=== PATIENT | female | born 1980 ===

== ENCOUNTER 2018-04-28 12:25 | Day surgery (SDC) | payer MEDICAID ==
[~2018-04-28] VITALS: Ht 167.6 cm; Wt 67.1 kg
[~2018-04-28 12:25] MED LIST: FISH OIL CAP1000 MG ORAL; LUNESTA2 MG ORAL; MULTIVITAMINS1 EAC2 ORAL
[2018-04-28 12:54] VITALS: BP 118/65
[2018-04-28] MEDS ORDERED: Bupivacaine 0.25% Inj 30ml INJ ONE (13:38)
[2018-04-28] MEDS ORDERED: Bacitracin Oint 15gm Tube TOPIC ONE (13:38)
[2018-04-28] MEDS ORDERED: Lidocaine 1% 10mg/ml/EPI 0.01mg/ml 50ml INJ ONE (13:38)
--- NOTE | 2018-04-28 14:34 | Pre-Procedure Note/Attestation ---
Pre-Procedure Note/Attestation Complete Prior to Procedure Planned Procedure: left Procedure Narrative: expanding lesion of left preauric Indications for Procedure Pre-Operative Diagnosis: pre auricular lesion left side Attestation I attest that I discussed the nature of the procedure; its benefits; risks and complications; and alternatives (and the risks and benefits of such alternatives ), prior to the procedure, with the patient (or the patient's legal outbound call center representative). I attest that, if there was a reasonable possibility of needing a blood transfusion, the patient (or the patient's legal outbound call center representative) was given the [facility] standardized written summary, pursuant to the [place] Blood Safety Act ([place] Health and Safety Code # 1645, as amended). I attest that I re-evaluated the patient just prior to the surgery and that there has been no change in the patient's H&P, except as documented below: Eduin Jose MD April 28, 2018 14:34
[2018-04-28 15:14] VITALS: BP 116/72
[2018-04-28 15:30] VITALS: BP 128/74
--- NOTE | 2018-05-03 12:15 | Operative Note - Dictated ---
DATE OF OPERATION: 04/30/2018 SURGEON: Eduin Jose M.D. PREOPERATIVE DIAGNOSIS: Left preauricular cyst. POSTOPERATIVE DIAGNOSIS: Left preauricular cyst. INDICATIONS: History of infection, erythema, swelling, pain, blood with necrosis. The patient understood the risks of excision and was aware that she would be having a scar on the left side in the preauricular area. The patient signed the consent and understood the risks, complications, and alternative methods of treatment. PROCEDURE IN DETAIL: The patient was prepped and draped for surgery, which was done under local with Betadine and injected with 1% Xylocaine in 1:400,000 epinephrine with a 27-gauge needle. I then incised with a 15-blade at the preauricular incision, undermined the skin and an ellipse created at the lesion. The elliptical lesion was excised and then marked at the superior pole with a 5-0 black nylon. The suture line was closed using a 5-0 Vicryl in the dermis, three interrupted sutures in a continuous running 5-0 blue Prolene. The patient had less than 2 mL of blood. The patient was transferred to the postop recovery facility in satisfactory condition. Eduin Jose M.D. DR: Kaleb JOB#: [id number] CC:
== END 2018-04-28 15:40 | disposition home or self-care (01) ==
LOC: SUR 12:25
DX: Q18.1 Preauricular sinus and cyst (principal); E11.9 Type 2 diabetes mellitus without complications
CPT/HCPCS: 81025